=== PATIENT | male | born 1970 | race Caucasian/White ===

== ENCOUNTER 2016-12-18 21:10 | Emergency (ER) | payer BC ==
[2016-12-18 21:30] VITALS: BP 138/93
[2016-12-18] MEDS ORDERED: Ibuprofen 600 MG Tab PO ONE (21:50)
--- NOTE | 2016-12-18 21:58 | EDM.PDOC ---
ED HPI GENERAL MEDICAL PROBLEM - General Chief Complaint: Upper Extremity Injury/Pain Stated Complaint: FELL HURT HAND Time Seen by Provider: 12/18/16 21:50 Source of Information: Reports: Patient History Limitations: Reports: No Limitations - History of Present Illness INITIAL COMMENTS - FREE TEXT/NARRATIVE: Lewis is a 46 year old male who presents to the ED today with c/o left hand and left ankle pain after he tripped and fell. Patient fell down 3 stairs, he got his left fourth digit struck in a banister. Patient has had left hand pain and swelling since that time. Patient rolled his left ankle as well but has been able to bare weight on it. Patient denies any other injury. He has not taken anything for pain. Onset: Today Duration: Hour(s): (12) Left Hand Pain Score (Numeric/FACES): 1 Left Ankle Pain Score (Numeric/FACES): 1 - Related Data Allergies Allergy/AdvReac Type Severity Reaction Status Date / Time No Known Allergies Allergy Verified 06/26/16 10:15 Home Meds: Home Meds valACYclovir HCl [Valacyclovir] 1,000 mg PO DAILY 06/26/16 [History] Past Medical History HEENT History: Reports: Allergic Rhinitis, Hard of Hearing - Infectious Disease History Infectious Disease History: Reports: Chicken Pox - Past Surgical History HEENT Surgical History: Reports: Oral Surgery Social & Family History - Tobacco Use Smoking Status *Q: Never Smoker Second Hand Smoke Exposure: No - Caffeine Use Caffeine Use: Reports: Tea - Alcohol Use Days Per Week of Alcohol Use: 1 Number of Drinks Per Day: 2 Total Drinks Per Week: 2 - Recreational Drug Use Recreational Drug Use: No Review of Systems - Review of Systems Review Of Systems: ROS reveals no pertinent complaints other than HPI. Trauma Exam - Physical Exam Exam: See Below Exam Limited By: No Limitations General Appearance: Reports: Alert, WD/WN, No Apparent Distress Head: Reports: Atraumatic Respiratory Exam: Reports: No Respiratory Distress Back: Reports: Full Range of Motion Extremities: Other (left hand swollen, dorsal aspect, swelling along 4/5th metacarpal region, pulses, capillary refill intact. No deformity or swelling to left ankle. ) Neurologic: Reports: No Motor/Sensory Deficits, Oriented x 3 Skin: Reports: Normal Color, Warm/Dry Course - Vital Signs Text/Narrative:: Lewis is a 46 year old male who presents to the ED today with c/o left hand and left ankle pain after he tripped and fell on the stairs while chasing a chipmunk. Patient denies any other injuries. Please refer to HPI and focused exam. X-ray of left hand shows a 4th mid shaft mildly displaced metacarpal fracture. Remaining hand xray is unremarkable. Left ankle x-ray was obtained and is negative for any acute intra-osseous abnormality. Patient was placed in an unlar gutter splint and sling. We discussed RICE for both hand and ankle. Ankle was luciana wrapped and placed in removable splint. Patient encouraged to take scheduled ibuprofen and follow up with Dr. Persaud. Reasons to return discussed. Patient agreeable and was discharged in stable condition. Last Recorded V/S: Last Vital Signs Temp 36.8 C 12/18/16 21:33 Pulse 63 12/18/16 21:33 Resp 16 12/18/16 21:33 BP 138/93 H 12/18/16 21:33 Pulse Ox 97 12/18/16 21:33 - Orders/Labs/Meds Orders: Active Orders 24 hr Category Date Time Status Ankle Min 3V Lt [CR] Stat Exams 12/18/16 22:52 Ordered Hand 2V Lt [CR] Stat Exams 12/18/16 21:50 Taken Meds: Medications Discontinued Medications Generic Name Dose Route Start Last Admin Trade Name Silvestre PRN Reason Stop Dose Admin Ibuprofen 600 mg 12/18/16 21:50 12/18/16 21:55 Motrin PO 12/18/16 21:51 600 mg ONETIME ONE Administration Departure - Departure Time of Disposition: 23:15 Disposition: Home, Self-Care 01 Condition: good Clinical Impression: Fracture of metacarpal bone Qualifiers: Encounter type: initial encounter Metacarpal bone: fourth Fracture type: closed Metacarpal location: shaft Fracture alignment: displaced Laterality: left Qualified Code(s): S62.325A - Displaced fracture of shaft of fourth metacarpal bone, left hand, initial encounter for closed fracture Ankle sprain Qualifiers: Encounter type: initial encounter Involved ligament of ankle: unspecified ligament Laterality: left Qualified Code(s): S93.402A - Sprain of unspecified ligament of left ankle, initial encounter - Discharge Information Instructions: Metacarpal Fracture, [id number], Cast or Splint Care, Easy-to- Read, Ankle Sprain, [id number] Forms: ED Department Discharge Additional Instructions: Lewis, please ice both hand and ankle often for the next 1-2 days. Take 600 mg ibuprofen scheduled every 6 hours for pain/inflammation, you can alternate this with Tylenol as needed (650 mg every 4 hours). Keep hand elevated as much as possible to reduce swelling. Follow up our orthopedic doctor, Dr. Persaud. They should call you to schedule an appt. - My Orders Last 24 Hours: My Active Orders 12/18/16 21:50 Hand 2V Lt [CR] Stat 12/18/16 22:52 Ankle Min 3V Lt [CR] Stat - Assessment/Plan Last 24 Hours: My Active Orders 12/18/16 21:50 Hand 2V Lt [CR] Stat 12/18/16 22:52 Ankle Min 3V Lt [CR] Stat
--- NOTE | 2016-12-19 08:51 | CR ---
No fracture or dislocation.
--- NOTE | 2016-12-19 10:56 | CR ---
Oblique fracture with mild anterior angulation at the fourth metacarpal midshaft.
== END 2016-12-18 23:27 | disposition home or self-care (01) ==
LOC: JP.ED 21:10
DX: S62.325A Displaced fracture of shaft of fourth metacarpal bone, left hand, initial encounter for closed fracture (principal); S93.402A Sprain of unspecified ligament of left ankle, initial encounter; Z79.899 Other long term (current) drug therapy; Z98.890 Other specified postprocedural states; W10.9XXA Fall (on) (from) unspecified stairs and steps, initial encounter
CPT/HCPCS: 29125; 73120; 73610; 99284; A9270

== ENCOUNTER 2017-09-23 18:58 | Emergency (ER) | payer BC ==
[2017-09-23 20:04] VITALS: BP 147/98
--- NOTE | 2017-09-23 21:45 | EDM.PDOC ---
ED HPI GENERAL MEDICAL PROBLEM - General Chief Complaint: Lower Extremity Injury/Pain Stated Complaint: HURT FOOT Time Seen by Provider: 09/23/17 19:22 Source of Information: Reports: Patient History Limitations: Reports: No Limitations - History of Present Illness INITIAL COMMENTS - FREE TEXT/NARRATIVE: Shortly before arrival approximately half an hour patient was carrying a log proximal 20 pounds and it fell from his hands and landed and first on his left foot. It hit him over the proximal mid foot. He complains of mostly the pain and swelling over the distal foot. He's able to bear weight on it although it is painful. It's he said it swelled up very rapidly over just a few minutes. Left Feet Pain Score (Numeric/FACES): 3 - Related Data Allergies Allergy/AdvReac Type Severity Reaction Status Date / Time No Known Allergies Allergy Verified 09/23/17 20:05 Home Meds: Home Meds valACYclovir HCl [Valacyclovir] 1,000 mg PO DAILY 06/26/16 [History] Past Medical History HEENT History: Reports: Allergic Rhinitis, Hard of Hearing Respiratory History: Reports: Asthma - Infectious Disease History Infectious Disease History: Reports: Chicken Pox - Past Surgical History HEENT Surgical History: Reports: Oral Surgery Other HEENT Surgeries/Procedures: WISDOM TEETH Social & Family History - Tobacco Use Smoking Status *Q: Never Smoker Second Hand Smoke Exposure: No - Caffeine Use Caffeine Use: Reports: Coffee - Alcohol Use Days Per Week of Alcohol Use: 1 Number of Drinks Per Day: 1 Total Drinks Per Week: 1 - Recreational Drug Use Recreational Drug Use: No Review of Systems - Review of Systems Review Of Systems: ROS reveals no pertinent complaints other than HPI. ED EXAM, GENERAL - Physical Exam Exam: See Below Exam Limited By: No Limitations General Appearance: Alert, No Apparent Distress Extremities: Other (The left foot shows moderate swelling over the mid to distal foot. He is able to move his toes normally and says it doesn't seem to cause much pain at all. Palpation of the foot shows there may be some hematoma over the midfoot. Neurovascular tendon appears to be intact to all the toes) Course - Vital Signs Last Recorded V/S: Last Vital Signs Temp 36.8 C 09/23/17 20:03 Pulse 74 09/23/17 20:03 Resp 16 09/23/17 20:03 BP 147/98 H 09/23/17 20:03 Pulse Ox 97 09/23/17 20:03 - Orders/Labs/Meds Orders: Active Orders 24 hr Category Date Time Status Foot Comp Min 3V Lt [CR] Stat Exams 09/23/17 20:18 Taken - Radiology Interpretation Free Text/Narrative:: X-ray of the left foot shows no evidence of fracture or dislocation Departure - Departure Time of Disposition: 21:43 Disposition: Home, Self-Care 01 Condition: Fair Clinical Impression: Contusion of foot - Discharge Information Instructions: Contusion Referrals: Manuel Long NP [Primary Care Provider] - Forms: ED Department Discharge Additional Instructions: Keep your foot elevated as much as possible and apply ice. Weight bearing as tolerated. The swelling should go down pretty quickly. You may see a lot of bruising and discoloration around the foot because I believe there is some blood collection to the top of the foot so don't be surprised if that moves downward around the sole of the foot - My Orders Last 24 Hours: My Active Orders 09/23/17 20:18 Foot Comp Min 3V Lt [CR] Stat - Assessment/Plan Last 24 Hours: My Active Orders 09/23/17 20:18 Foot Comp Min 3V Lt [CR] Stat
== END 2017-09-23 21:51 | disposition home or self-care (01) ==
LOC: JP.ED 18:58
DX: S90.32XA Contusion of left foot, initial encounter (principal); Z79.899 Other long term (current) drug therapy; J45.909 Unspecified asthma, uncomplicated; W20.8XXA Other cause of strike by thrown, projected or falling object, initial encounter
CPT/HCPCS: 73630-LT; 99284

== ENCOUNTER 2017-09-26 08:07 | Day surgery (SDC) | payer BC ==
[2017-09-26] MEDS ORDERED: Lactated Ringers 1,000 ML IV SCH (09:00)
[2017-09-26] MEDS ORDERED: fentaNYL 100 MCG/2 ML SDV ONE (09:11)
[2017-09-26] MEDS ORDERED: Midazolam 1 MG/ML 2 ML SDV ONE (09:11)
[2017-09-26] MEDS ORDERED: Propofol 200 MG/20 ML SDV ONE ×2 (09:11→10:21)
[2017-09-26 11:43] VITALS: BP 123/86
--- NOTE | 2017-09-27 07:29 | OR ---
DATE OF PROCEDURE: 09/26/2017 PREOPERATIVE DIAGNOSIS: History of adenomatous polyps. POSTOPERATIVE DIAGNOSIS: Unremarkable colonoscopy, history of adenomatous colon polyps. PROCEDURE: Colonoscopy to the cecum. SURGEON: Hector Sears MD ANESTHESIA: IV anesthesia with monitored anesthesia care. INDICATION: This 47-year-old white male underwent a colonoscopy a little over a year ago because of a strong family history of precancerous polyps. Three polyps were removed, two of them were tubular adenomas and one was a tubulovillous adenoma. He is here for a followup colonoscopy. I counseled him for the procedure, including risks and alternatives, and he gave his informed consent to proceed. DESCRIPTION OF PROCEDURE: The patient was placed in the left lateral decubitus position. IV anesthesia was administered by the Anesthesia Service. Time-out was held. A rectal exam was performed, which was unremarkable. The flexible video Olympus colonoscope was introduced through his anus, up his rectum, out his colon, and all the way to the cecum. Once the cecum was reached, the scope was slowly withdrawn, examining the mucosa throughout. No mucosal abnormalities were noted. The scope was retroflexed in the rectum with the distal rectum appearing unremarkable, except for some minor hemorrhoidal tissue. The scope was straightened and removed. He tolerated the procedure well. Hector Sears MD /[id number]
== END 2017-09-26 11:45 | disposition home or self-care (01) ==
LOC: JP.SDS 08:07
PROVIDERS: ATTEND Surgery
DX: Z12.11 Encounter for screening for malignant neoplasm of colon (principal); Z86.010 Personal history of colon polyps
CPT/HCPCS: 45378; J2250; J2704; J3010; J7120

== ENCOUNTER 2019-06-18 23:20 | Emergency (ER) | payer BC ==
[2019-06-18 23:31] VITALS: BP 133/97; PULSE 61
[2019-06-19] MEDS ORDERED: Ondansetron 4 MG Tab.DIS PO ONE (00:01)
--- NOTE | 2019-06-19 00:05 | EDM.PDOC ---
ED HPI GENERAL MEDICAL PROBLEM - General Chief Complaint: ENT Problem Stated Complaint: TROUBLE BREATHING Time Seen by Provider: 06/18/19 23:39 Source of Information: Reports: Patient, Family, RN Notes Reviewed History Limitations: Reports: No Limitations - History of Present Illness INITIAL COMMENTS - FREE TEXT/NARRATIVE: 49-year-old gentleman presents emergency department today with complaint of sudden onset of shortness of breath was sleeping suddenly awoke with inability to breathe inability to speak he eventually was able to clear his throat. He states it felt like a large amount of mucus that was plugging his throat off. He does admit to eating a large amount of pizza this evening which does cause reflux for him which she has had the past. He had an event similar to this about 10 years ago at which time he said his epiglottis was inflamed. He still has this feeling that his throat is swollen but no shortness of breath Throat Pain Score (Numeric/FACES): 2 - Related Data Allergies Allergy/AdvReac Type Severity Reaction Status Date / Time No Known Allergies Allergy Verified 06/18/19 23:31 Home Meds: Home Meds valACYclovir HCl [Valacyclovir] 1,000 mg PO DAILY 06/26/16 [History] Past Medical History HEENT History: Reports: Allergic Rhinitis, Hard of Hearing Respiratory History: Reports: Asthma Gastrointestinal History: Reports: Colon Polyp - Infectious Disease History Infectious Disease History: Reports: Chicken Pox, Herpes - Past Surgical History HEENT Surgical History: Reports: Oral Surgery Other HEENT Surgeries/Procedures: WISDOM TEETH Respiratory Surgical History: Reports: None GI Surgical History: Reports: Colonoscopy, Polypectomy Dermatological Surgical History: Reports: None Social & Family History - Family History Cardiac: Reports: ID Musculoskeletal: Reports: Arthritis Neurological: Reports: CVA, Dementia Endocrine/Metabolic: Reports: Diabetes, Type I Dermatologic: Reports: Psoriasis Oncologic: Reports: Breast - Tobacco Use Smoking Status *Q: Never Smoker - Caffeine Use Caffeine Use: Reports: Coffee - Recreational Drug Use Recreational Drug Use: No ED ROS GENERAL - Review of Systems Review Of Systems: See Below Constitutional: Reports: No Symptoms HEENT: Reports: Throat Pain, Throat Swelling Respiratory: Reports: No Symptoms Cardiovascular: Reports: No Symptoms GI/Abdominal: Reports: No Symptoms ED EXAM, GENERAL - Physical Exam Exam: See Below Exam Limited By: No Limitations General Appearance: Alert, WD/WN, No Apparent Distress Throat/Mouth: Normal Inspection, Normal Lips, Normal Teeth, Normal Gums, Normal Oropharynx, Normal Voice, No Airway Compromise Head: Atraumatic, Normocephalic Neck: Normal Inspection, Supple, Non-Tender, Full Range of Motion Respiratory/Chest: No Respiratory Distress, Lungs Clear, Normal Breath Sounds, No Accessory Muscle Use, Chest Non-Tender Cardiovascular: Regular Rate, Rhythm, No Murmur Course - Vital Signs Last Recorded V/S: Last Vital Signs Temp 97.4 F 06/18/19 23:29 Pulse 61 06/18/19 23:29 Resp 16 06/18/19 23:29 BP 133/97 H 06/18/19 23:29 Pulse Ox 96 06/18/19 23:29 - Orders/Labs/Meds Meds: Medications Discontinued Medications Generic Name Dose Route Start Last Admin Trade Name Freq PRN Reason Stop Dose Admin Al Hydroxide/Mg Hydroxide 15 0 ml 06/19/19 00:21 06/19/19 00:28 ml/ Lidocaine HCl 15 ml PO 06/19/19 00:22 30 ml ONETIME ONE Administration Ondansetron HCl 4 mg 06/19/19 00:01 06/19/19 00:05 Zofran Odt PO 06/19/19 00:02 4 mg ONETIME ONE Administration Departure - Departure Time of Disposition: 00:43 Disposition: Home, Self-Care 01 Condition: Fair Clinical Impression: Acid reflux Qualifiers: Esophagitis presence: esophagitis presence not specified Qualified Code(s): K21.9 - Gastro-esophageal reflux disease without esophagitis - Discharge Information Instructions: Heartburn, [id number] Referrals: PCP,None [Primary Care Provider] - Forms: ED Department Discharge Additional Instructions: Try Zantac or Nexium as needed, please followup with your primary care provider in 3-5 days if not better, please call return to the emergency department with worsening of symptoms. - Assessment/Plan Plan: Assessment Acuity = acute Site and laterality = probable reflux Etiology = unknown Manifestations = none Location of injury = Home Lab values = none Plan He had good relief with the GI cocktail provided and follow-up with primary care 3 to 5 days if not better This note was dictated using [employer] voice recognition software please call with any questions on syntax or grammar.
[2019-06-19] MEDS ORDERED: Alum Hydrox/Mag Hydrox/Simeth 15 ML, Lidocaine 2% 15 ML PO ONE ×2 (00:21)
== END 2019-06-19 01:09 | disposition home or self-care (01) ==
LOC: JP.ED 23:20
DX: K21.9 Gastro-esophageal reflux disease without esophagitis (principal); J45.909 Unspecified asthma, uncomplicated; Z79.899 Other long term (current) drug therapy
CPT/HCPCS: 99284; A9270

== ENCOUNTER 2020-03-01 07:43 | Day surgery (SDC) | payer BC ==
[~2020-03-01 07:43] MED LIST: Bupivacaine 0.5% 50 ML MDV ONE; Lidocaine 1% with EPINEPHrine 1:100,000 50 ML MDV ONE
[2020-03-01] MEDS ORDERED: Propofol 200 MG/20 ML SDV ONE (07:47)
[2020-03-01] MEDS ORDERED: Ondansetron 4 MG/2 ML SDV ONE (07:47)
[2020-03-01] MEDS ORDERED: Succinylcholine 200 MG/10 ML MDV ONE (07:47)
[2020-03-01] MEDS ORDERED: Rocuronium 50 MG/5 ML Vial ONE (07:47)
[2020-03-01] MEDS ORDERED: fentaNYL 250 MCG/5 ML SDV ONE ×2 (07:47→10:22)
[2020-03-01] MEDS ORDERED: Neostigmine Methylsulfate 1 MG/ML 5 ML Syringe ONE (07:47)
[2020-03-01] MEDS ORDERED: Dexamethasone 4 MG/ML SDV ONE (07:47)
[2020-03-01] MEDS ORDERED: Glycopyrrolate 0.2 MG/ML 5 ML MDV ONE (07:47)
[2020-03-01] MEDS ORDERED: Sodium Chloride 0.9% 1,000 ML IV SCH ×2 (09:00→13:30)
[2020-03-01] MEDS ORDERED: ceFAZolin 2 GM in Premix Bag 1 BAG IV ONE (09:45)
[2020-03-01] MEDS ORDERED: ceFAZolin 2 GM in Sodium Chloride 0.9% 100 ML IV ONE (09:45)
[2020-03-01] MEDS ORDERED: metroNIDAZOLE/Normal Saline 500 MG in Premix Bag 1 BAG IV ONE (10:15)
[2020-03-01] MEDS ORDERED: Labetalol 20 MG/4 ML Syringe ONE (10:45)
[2020-03-01] MEDS ORDERED: Ketorolac 60 MG/2 ML SDV ONE (10:45)
[2020-03-01] MEDS ORDERED: Labetalol 20 MG/4 ML Syringe IVPUSH ONE (11:15)
[2020-03-01] MEDS ORDERED: Acetaminophen/HYDROcodone 325-5 MG Tab PO ONE (13:46)
[2020-03-01 14:32] VITALS: BP 123/85; PULSE 55
--- NOTE | 2020-03-02 09:44 | OR ---
DATE OF PROCEDURE: 03/01/2020 SURGEON: Juan Carlos Camargo MD PROCEDURE: Left total extraperitoneal hernia repair. COMPLICATIONS: None. HOSPICE OFFICE COORDINATOR: None. FINDINGS: Indirect incarcerated inguinal hernia, non-strangulated. RISKS: Risks, benefits, alternatives, and limitations including, but not limited to infection, bleeding, and perforation were explained to the patient, who wished to proceed. PROCEDURE IN DETAIL: The patient was placed in a supine position. A midline linear incision was made. This was carried down with electrocautery and blunt dissection to the external oblique aponeurosis, which was opened. The rectus sheath was spread in the peritoneum, and a Pean was used to create a preperitoneal space. The balloon was then inserted, subsequently insufflated, held for 1 minute. The balloon was removed and then the cavity was insufflated. No peritoneal entry was noted, although of note, a less than 1 cm peritoneal rent would be created during the dissection of the incarcerated indirect inguinal hernia. This was repaired under direct visualization with 3 clips. The incarcerated hernia was dissected with some difficulty due to adhesions and inflammation. The cord structures were identified and not interacted with anyway other than observation. The mesh material was tucked into place, placed within the abdomen, unfolded with 1 cm overlap on the pubic symphysis. No abnormal bleeding was noted. The air was removed. The wounds were closed with #1 Vicryl for the fascia, 3-0 and 4-0 Vicryl, and Dermabond. The patient tolerated the procedure well. Juan Carlos Camargo MD /[id number]
--- NOTE | 2020-03-02 09:51 | OR ---
DATE OF PROCEDURE: 03/01/2020 SURGEON: Juan Carlos Camargo MD PROCEDURE: Rectus sheath block, bilaterally. COMPLICATIONS: None. CLIENT CARE SPECIALIST: None. RISKS: Risks, benefits, alternatives, and limitations including, but not limited to infection, bleeding, and injury to abdominal structures were explained to the patient, who wished to proceed. PROCEDURE IN DETAIL: The patient was placed in supine position. The rectus sheath on the right side was identified first. Using a 13 megahertz ultrasound probe, the needle was advanced into the inferior aspect directly below the rectus sheath, and between that and the peritoneum, 80% solution was injected on the right side. Left side was then performed in same manner, same fashion, same technique. No difficulties were noted, 80% solution was injected. The patient tolerated the procedure well. Juan Carlos Camargo MD /[id number]
== END 2020-03-01 15:30 | disposition home or self-care (01) ==
LOC: JP.SDS 07:43
PROVIDERS: ATTEND Surgery
DX: K40.30 Unilateral inguinal hernia, with obstruction, without gangrene, not specified as recurrent (principal); K66.0 Peritoneal adhesions (postprocedural) (postinfection); E78.5 Hyperlipidemia, unspecified; A60.02 Herpesviral infection of other male genital organs
CPT/HCPCS: 49507; C1781; J0171; J0330; J0690; J1100; J1885; J2405; J2704; J2710; J2795; J3010; J3490; J7030; J7050

== ENCOUNTER 2021-10-20 03:09 | Emergency (ER) | payer BC ==
[2021-10-20 04:01] VITALS: BP 152/92; PULSE 71
== END 2021-10-20 04:12 | disposition home or self-care (01) ==
LOC: JP.ED 03:09
DX: K59.01 Slow transit constipation (principal); K91.89 Other postprocedural complications and disorders of digestive system; K56.7 Ileus, unspecified
CPT/HCPCS: 99282; 99283

== ENCOUNTER 2023-01-08 06:24 | Day surgery (SDC) | payer BC ==
[2023-01-08] MEDS ORDERED: Lactated Ringers 1,000 ML IV SCH (07:00)
[2023-01-08] MEDS ORDERED: fentaNYL 100 MCG/2 ML SDV ONE (07:26)
[2023-01-08] MEDS ORDERED: Propofol 200 MG/20 ML SDV ONE ×2 (07:26→07:44)
[2023-01-08 08:41] VITALS: PULSE 51
[2023-01-08 08:47] VITALS: BP 144/98
== END 2023-01-08 09:10 | disposition home or self-care (01) ==
LOC: JP.SDS 06:24
PROVIDERS: ATTEND Student in an Organized Health Care Education/Training Program
DX: Z12.11 Encounter for screening for malignant neoplasm of colon (principal); D12.0 Benign neoplasm of cecum; D12.8 Benign neoplasm of rectum; K21.9 Gastro-esophageal reflux disease without esophagitis; E78.00 Pure hypercholesterolemia, unspecified
CPT/HCPCS: 45380; 45385; 88305; J2704; J3010; J7120